=== PATIENT | female | born 1960 | race Caucasian/White ===

== ENCOUNTER → 2023-04-19 10:54 | Outpatient (CLI) | payer OTHER, SELFPAY ==
--- NOTE | 2023-04-19 | DI.RAD.S_ITS ---
PROCEDURE: XR CHEST 2V INDICATIONS: Other forms of dyspnea TECHNIQUE: 2 views of the chest were acquired. COMPARISON: None. FINDINGS: Surgical changes and devices: None. Lungs and pleura: Mild elevation of the right hemidiaphragm. The lungs are otherwise clear. No pleural effusions or pneumothorax. Mediastinum: Mediastinal contours are normal. Heart size is normal. Bones and chest wall: No suspicious bony abnormalities. Soft tissues appear unremarkable. IMPRESSION: Mild elevation of the right hemidiaphragm is of uncertain chronicity. No acute cardiopulmonary abnormality identified. Approved by: Charles Townsend M.D. on 04/19/2023 at 14:50
== END ==
PROVIDERS: Family Provider Internal Medicine; PCP Registered Nurse; Referring Provider Registered Nurse; Visit Provider Registered Nurse
DX: R06.09 Other forms of dyspnea (principal)
CPT/HCPCS: 71046

== ENCOUNTER → 2023-04-30 07:40 | Outpatient (CLI) | payer OTHER, SELFPAY ==
--- NOTE | 2023-04-30 | DI.CT.S_ITS ---
PROCEDURE: CT CHEST W CON INDICATIONS: ELEVATED HEMIDIAPHRAGM/SHORTNESS OF BREATH TECHNIQUE: After the administration of intravenous contrast, 5 mm thick sections acquired from the pulmonary apices to the posterior costophrenic angles. 1 mm axial lung, 5 mm thick coronal and sagittal reformats and 7 mm axial MIP were acquired. For radiation dose reduction, the following was used: automated exposure control, adjustment of mA and/or kV according to patient size. COMPARISON: [facility], CR, XR CHEST 2V, 04/19/2023, 11:05. [facility], RG, XR SHOULDER 2V RT, 07/12/2001, 12:40. FINDINGS: Image quality: Excellent. Lungs and pleura: Left lower lobe pulmonary nodule measuring 0.5 cm, (3/190). Minimal dependent right basilar atelectasis. No acute air space opacities. No pleural effusions or pneumothorax. Central and peripheral airways are patent and normal in caliber. Mediastinum: Heart size is normal. No pericardial effusion. No mediastinal or hilar adenopathy by size criteria. Thoracic aorta and central pulmonary arteries are normal in size. Esophagus is normal in caliber. No hiatal hernia. Asymmetric elevation of the right hemidiaphragm, unchanged. Bones and chest wall: No suspicious bony lesions. No vertebral body compression fractures. No axillary or supraclavicular adenopathy by size criteria. Thyroid gland is unremarkable. Bilateral breast implants. Abdomen: Visualized upper abdominal solid organs appear normal. Upper abdominal bowel loops are normal in caliber. IMPRESSION: 1. No acute airspace opacity. No pleural effusion. 2. Asymmetric elevation of the right hemidiaphragm. This is often an incidental finding. If high suspicion for diaphragmatic paralysis, fluoroscopic sniff study could be for performed. 3. Left lower lobe pulmonary nodule measuring 0.5 cm. Follow-up CT chest in 1 year could be considered. 4. No adenopathy. Dictated by: Ziggy Piper M.D. on 04/30/2023 at 10:05 Approved by: Ziggy Piper M.D. on 04/30/2023 at 10:12
[2023-04-30 08:11] LABS: Estimated Glomerular Filt Rate > 60 mL/min (>60)
== END ==
PROVIDERS: Radiology Diagnostic Radiology; Family Provider Internal Medicine; PCP Registered Nurse; Referring Provider Registered Nurse; Visit Provider Registered Nurse
DX: J98.6 Disorders of diaphragm (principal); R06.09 Other forms of dyspnea; R91.1 Solitary pulmonary nodule; R06.03 Acute respiratory distress; J98.8 Other specified respiratory disorders
CPT/HCPCS: 36415; 71260; 82565; 94060; 94726; 94729; Q9967

== ENCOUNTER → 2023-04-30 | Outpatient (CLI) | payer OTHER, SELFPAY | LOC: RESP 06:49 | PROVIDERS: Family Provider Internal Medicine; PCP Registered Nurse; Referring Provider Registered Nurse; Visit Provider Registered Nurse | DX: R06.09 Other forms of dyspnea (principal); R06.03 Acute respiratory distress; J98.8 Other specified respiratory disorders | CPT/HCPCS: 94060; 94726; 94729 ==

== ENCOUNTER → 2023-05-14 14:26 | Outpatient (CLI) | payer OTHER, SELFPAY ==
--- NOTE | 2023-05-14 | DI.MG.S_ITS ---
BILATERAL DIGITAL SCREENING MAMMOGRAM 3D/2D WITH CAD WITH AUGMENTATION: 05/14/2023 CLINICAL: Routine screening. Family history of breast cancer. Comparison is made to exams dated: 02/26/2022 mammogram and 07/18/2020 mammogram - Outside facility. There are scattered areas of fibroglandular density in both breasts (category b / 25%-50% glandular tissue). Current study was also evaluated with a Computer Aided Detection (CAD) system. There is a possible focal asymmetry in the left breast central to the nipple middle depth. This is more prominent. No other significant masses, calcifications, or other findings are seen in either breast. Implants present. IMPRESSION: INCOMPLETE: NEEDS ADDITIONAL IMAGING EVALUATION The possible focal asymmetry in the left breast is indeterminate. Additional views with possible ultrasound are recommended. Based on the Tyrer Cuzick model (a risk assessment model) the patient's lifetime risk is 13.7% and her 10 year risk is 6.4%. According to the ACR, ACS, and NCCN guidelines, an annual breast MRI exam along with mammogram is recommended if the patient's lifetime risk is 20% or greater. This exam was interpreted at Station ID: [id number]. NOTE: For mammograms, a report in lay terms will be sent to the patient. Approximately 15% of breast malignancies will not be visualized mammographically. In the management of a palpable breast mass, a negative mammogram must not discourage biopsy of a clinically suspicious lesion. Electronically Signed By: Ronnie Priest M.D. lc/:05/14/2023 15:24:46 letter sent: Additional Imaging Needed ACR BI-RADS Category 0: Incomplete 3340F
== END ==
PROVIDERS: Family Provider Internal Medicine; PCP Registered Nurse; Referring Provider Registered Nurse; Visit Provider Registered Nurse
DX: Z12.31 Encounter for screening mammogram for malignant neoplasm of breast (principal); Z80.3 Family history of malignant neoplasm of breast
CPT/HCPCS: 77063; 77067

== ENCOUNTER → 2023-06-04 07:57 | Outpatient (CLI) | payer OTHER, SELFPAY ==
--- NOTE | 2023-06-04 | DI.RAD.S_ITS ---
PROCEDURE: FL FLUOROSCOPY COMPARISON: [facility], CT, CT CHEST W CON, 04/30/2023, 9:04. [facility], CR, XR CHEST 2V, 04/19/2023, 11:05. [facility], MG, MM SPECIAL VIEW LT, 06/04/2023, 10:05. INDICATIONS: ELEVATED JORDAN DIAPHRAGM FINDINGS: The patient was examined under fluoroscopy with inspiration and expiration. The field of view included both right and left hemidiaphragms. The right hemidiaphragm is elevated. There is absence of right diaphragmatic excursion. The left hemidiaphragm demonstrates normal exclusion with inspiration and expiration. Visualized lungs are clear. 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 Dictated by: Winston Gomez M.D. on 06/04/2023 at 11:36 Approved by: Winston Gomez M.D. on 06/04/2023 at 11:40
--- NOTE | 2023-06-04 08:00 | DI.MG.S_ITS ---
UNILATERAL LEFT DIGITAL DIAGNOSTIC MAMMOGRAM 3D/2D WITH ADDITIONAL VIEWS: 06/04/2023 CLINICAL: Additional evaluation requested from prior study. Comparison is made to exams dated: 05/14/2023 mammogram - [facility], 02/26/2022 mammogram, and 07/18/2020 mammogram - Outside facility. There are scattered areas of fibroglandular density in the left breast (category b / 25%-50% glandular tissue). The finding seen on recent screening mammogram did not persist with additional imaging and is consistent with superimposition of normal breast tissue. No significant masses, calcifications, or other findings are seen in the breast. IMPRESSION: NEGATIVE Superimposition of normal breast tissue. No mammographic evidence of malignancy. A 1 year screening mammogram is recommended. Findings and recommendations were conveyed to the patient during today's evaluation. Based on the Tyrer Cuzick model (a risk assessment model) the patient's lifetime risk is 13.7% and her 10 year risk is 6.4%. According to the ACR, ACS, and NCCN guidelines, an annual breast MRI exam along with mammogram is recommended if the patient's lifetime risk is 20% or greater. This exam was interpreted at Station ID: [id number]. NOTE: For mammograms, a report in lay terms will be sent to the patient. Approximately 15% of breast malignancies will not be visualized mammographically. In the management of a palpable breast mass, a negative mammogram must not discourage biopsy of a clinically suspicious lesion. Electronically Signed By: Chitra Bower M.D., PH.D eb/:06/04/2023 10:19:40 letter sent: Normal Exam ACR BI-RADS Category 1: Negative [id number]
== END ==
PROVIDERS: Family Provider Internal Medicine; PCP Registered Nurse; Visit Provider Internal Medicine Sleep Medicine
DX: R92.8 Other abnormal and inconclusive findings on diagnostic imaging of breast (principal); R06.09 Other forms of dyspnea; J98.6 Disorders of diaphragm; R91.1 Solitary pulmonary nodule
CPT/HCPCS: 76000; 77065; G0279

== ENCOUNTER → 2024-05-15 12:46 | Outpatient (CLI) | payer OTHER, SELFPAY ==
--- NOTE | 2024-05-15 12:47 | DI.MG.S_ITS ---
BILATERAL DIGITAL SCREENING MAMMOGRAM 3D/2D WITH CAD WITH AUGMENTATION: 05/15/2024 CLINICAL: Routine screening. Family history breast cancer. Comparison is made to exams dated: 06/04/2023 mammogram, 05/14/2023 mammogram - [facility], and 02/26/2022 mammogram - Outside facility. There are scattered areas of fibroglandular density (category b / 25%-50% glandular tissue). Current study was also evaluated with a Computer Aided Detection (CAD) system. Bilateral breast implants are intact. No significant masses, calcifications, or other findings are seen in either breast. There has been no significant interval change. IMPRESSION: BENIGN There is no mammographic evidence of malignancy. A 1 year screening mammogram is recommended. Based on the Tyrer Cuzick model (a risk assessment model) the patient's lifetime risk is 13.1% and her 10 year risk is 6.4%. According to the ACR, ACS, and NCCN guidelines, an annual breast MRI exam along with mammogram is recommended if the patient's lifetime risk is 20% or greater. This exam was interpreted at Station ID: [id number]. NOTE: For mammograms, a report in lay terms will be sent to the patient. Approximately 15% of breast malignancies will not be visualized mammographically. In the management of a palpable breast mass, a negative mammogram must not discourage biopsy of a clinically suspicious lesion. Electronically Signed By: Chitra Bower M.D., Ph.D. edi/patrick:05/17/2024 22:50:20 letter sent: Normal Exam ACR BI-RADS Category 2: Benign
== END ==
LOC: MAMMO 12:46
PROVIDERS: Family Provider Internal Medicine; PCP Registered Nurse; Referring Provider Registered Nurse; Visit Provider Registered Nurse
DX: Z12.31 Encounter for screening mammogram for malignant neoplasm of breast (principal); Z80.3 Family history of malignant neoplasm of breast
CPT/HCPCS: 77063; 77067

== ENCOUNTER 2025-03-16 02:57 | Inpatient (IN) | payer OTHER, SELFPAY ==
[2025-03-16] VITALS (26 sets, daily range): BP systolic 100–139; BP diastolic 48–75; PULSE 62–88; RESP 15–30; TEMP 36.4–36.9; O2SAT 91–98; BMI 26.5
--- NOTE | 2025-03-16 04:04 | ED.BACK ---
HPI - Back Pain/Injury <Marvin Bain MD - Last Filed: 03/16/25 18:30> General Chief Complaint: Back Pain/Injury Stated Complaint: pain under left breast/hurts to breathe Time Seen by Provider: 03/16/25 03:19 Source: patient History of Present Illness HPI Narrative: 65-year-old female with no known history of coronary artery disease, no prior DVT/PE, complains of left pleuritic chest pain since early this morning, below her left breast, worsening tonight, worse with movements and deep breathing. No injury trauma new activities. No history of blood clots to legs or lungs, no leg pain or swelling symptoms. No fevers or chills. No recent cough shortness of breath. No prior coronary vessel interventions, or provocative stress testing of the coronary vessels. No breast/skin injury, no redness or changs to the left breast, history of remote breast augmentation bilateral. Related Data Home Medications ?Medication ?Instructions ?Recorded ?Confirmed rfeoukoy-aold-saja 8 mg-folic 400 1 tab PO DAILY 05/07/23 03/16/25 mcg-K 50 mcg-lutein 300 mcg tablet (Centrum Silver Women) Allergies Allergy/AdvReac Type Severity Reaction Status Date / Time PCN (PENICILLIN) Allergy Mild Uncoded 03/16/25 03:00 Patient History <Marvin Bain MD - Last Filed: 03/16/25 18:30> Medical History (Updated 03/16/25 @ 14:41 by Sujit Hein MD) Elevated hemidiaphragm Surgical History (Updated 03/16/25 @ 14:41 by Sujit Hein MD) H/O excision of dermoid cyst H/O: H/O breast augmentation Family History (Updated 03/16/25 @ 14:45 by Sujit Hein MD) Mother Dementia Father Myocardial infarct Sister Breast cancer Social History household members: spouse Smoking Status: Never smoker Smoking Status: Never smoker Alcohol type: beer and wine Exam <Marvin Bain MD - Last Filed: 03/16/25 18:30> Narrative Exam Narrative: GENERAL: Well-developed patient, in mild distress. HEAD: Atraumatic. Normocephalic. EYES: Pupils equal round and reactive. Extraocular motions intact. No scleral icterus. No injection or drainage. ENT: Nose without bleeding, purulent drainage. Throat without erythema, tonsillar hypertrophy or exudate. Airway patent. NECK: Trachea midline. Non tender CARDIOVASCULAR: Regular rate and rhythm without murmurs, gallops, or rubs. RESPIRATORY: Clear to auscultation. Breath sounds equal bilaterally. No wheezes, rales, or rhonchi. Left breast exam with CLARITA gary, well-healed inferior scar midline horizontal from augmentation remote procedure, no redness, no tenderness to breast tissue, no tenderness to chest wall or lymphadenopathy or fascicular rash or erythema. No tenderness left axilla, no axillary lymphadenopathy or cystic lesions or other lesions palpable. GASTROINTESTINAL: Abdomen soft, non-tender, nondistended. EXTREMITIES: No edema or joint tenderness. BACK: Nontender without deformity or crepitance. No flank tenderness. NEURO: AOx3. Motor functions grossly nonfocal. SKIN: No rash or erythema of visible areas Initial Vital Signs Initial Vital Signs: Vital Signs Temperature 98.5 F 03/16/25 03:00 Pulse Rate 82 03/16/25 03:00 Respiratory Rate 15 03/16/25 03:00 Blood Pressure 122/58 L 03/16/25 03:00 Pulse Oximetry 96 03/16/25 03:00 Oxygen Delivery Method Room Air 03/16/25 03:00 <Calvin Espinoza MD - Last Filed: 03/16/25 09:40> Initial Vital Signs Initial Vital Signs: Vital Signs Temperature 98.5 F 03/16/25 03:00 Pulse Rate 82 03/16/25 03:00 Respiratory Rate 15 03/16/25 03:00 Blood Pressure 122/58 L 03/16/25 03:00 Pulse Oximetry 96 03/16/25 03:00 Oxygen Delivery Method Room Air 03/16/25 03:00 Course <Marvin Bain MD - Last Filed: 03/16/25 18:30> Orders Ordered: ED Orders 03/16/25 13:19 PTT Partial Thromboplastin Tomy Q6H 03/16/25 21:00 PTT Partial Thromboplastin Tomy Q6H 03/17/25 00:30 PTT Partial Thromboplastin Tomy Q6H 03/17/25 05:00 Hemoglobin and Hematocrit DAILY Platelet Count DAILY 03/18/25 05:00 Hemoglobin and Hematocrit DAILY Platelet Count DAILY Hydrocodone Bitart/Acetaminophen (Hydrocodone/Acet 5/325 Tablet) 1 tab PO Q4HR PRN PRN Reason: Pain, Moderate (4-6) Last Admin: 03/16/25 16:12 Dose: 1 tab Documented By: Admin: 03/16/25 10:50 Dose: 1 tab Documented By: ANDERSON Hydrocodone Bitart/Acetaminophen (Hydrocodone/Acet 5/325 Tablet) 2 tab PO Q4HR PRN PRN Reason: Pain, Severe (7-10) Last Admin: 03/16/25 12:50 Dose: 2 tab Documented By: Hydromorphone HCl (Hydromorphone Hcl 0.5 Mg/0.5 Ml Syringe) 0.5 mg IV Q2H PRN PRN Reason: Pain, Severe (7-10) Last Admin: 03/16/25 18:21 Dose: 0.5 mg Documented By: Admin: 03/16/25 16:35 Dose: 0.5 mg Documented By: Admin: 03/16/25 14:48 Dose: 0.5 mg Documented By: Heparin Sodium/Dextrose (Heparin Drip) 25,000 unit in 500 mls @ 24.494 mls/hr IV CONT FRANCOISE; Protocol Last Titration: 03/16/25 14:59 Dose: 14 units/kg/hr, 19.051 mls/hr Documented By: Co-signed By: VALARIE Titration: 03/16/25 13:58 Dose: 0 units/kg/hr, 0 mls/hr Documented By: Co-signed By: BALDOMERO Titration: 03/16/25 12:09 Dose: 18 units/kg/hr, 24.5 mls/hr Documented By: ANDERSON Co-signed By: KB Admin: 03/16/25 07:01 Dose: 18 units/kg/hr, 24.5 mls/hr Documented By: KH Co-signed By: AB Naloxone HCl (Naloxone 0.4 Mg/Ml Vial) 0.2 mg IV Q2MIN PRN PRN Reason: Opiate Reversal Ondansetron HCl (Ondansetron 4 Mg/2 Ml Inj) 4 mg IV Q6HR PRN PRN Reason: Nausea And Vomiting Ondansetron HCl (Ondansetron 4 Mg Odt) 4 mg SL Q6HR PRN PRN Reason: Nausea Sodium Chloride (Sodium Chloride 0.9% Flush) 10 ml IV PRN PRN PRN Reason: Flush Last Admin: 03/16/25 18:22 Dose: 10 ml Documented By: Admin: 03/16/25 14:49 Dose: 10 ml Documented By: Sodium Chloride (Sodium Chloride 0.9% Flush) 10 ml IV BID FRANCOISE Discontinued Medications Aspirin (Aspirin 81 Mg Chew Tab) 324 mg PO NOW ONE Stop: 03/16/25 04:14 Last Admin: 03/16/25 04:23 Dose: 324 mg Documented By: KEVIN Heparin Sodium (Porcine) (Heparin 5,000 Unit/Ml Vial) 5,500 unit 80 unit/kg (5500 unit) IV NOW ONE Stop: 03/16/25 06:27 Last Admin: 03/16/25 06:45 Dose: 5,500 unit Documented By: KEVIN Hydromorphone HCl (Hydromorphone 1 Mg/Ml Syringe) 0.5 mg IV NOW ONE Stop: 03/16/25 13:03 Last Admin: 03/16/25 14:19 Dose: Not Given Documented By: Ceftriaxone Sodium 1,000 mg/ (Sodium Chloride) 100 mls @ 200 mls/hr IV NOW ONE Stop: 03/16/25 06:41 Last Infusion: 03/16/25 08:13 Dose: Infused Documented By: Admin: 03/16/25 07:00 Dose: 200 mls/hr Documented By: KEVIN Azithromycin 500 mg/ Dextrose 250 mls @ 250 mls/hr IV NOW ONE Stop: 03/16/25 06:41 Last Infusion: 03/16/25 09:59 Dose: Infused Documented By: Admin: 03/16/25 08:46 Dose: 250 mls/hr Documented By: ANDERSON Vital Signs Vital signs: Vital Signs - 8 hr 03/16/25 03:00 03/16/25 04:11 03/16/25 04:12 Temperature 98.5 F Pulse Rate 82 69 Respiratory Rate 15 Blood Pressure 122/58 L 131/75 Pulse Oximetry 96 97 Oxygen Delivery Method Room Air 03/16/25 04:12 03/16/25 04:30 03/16/25 04:30 Temperature Pulse Rate 69 67 Respiratory Rate 24 22 Blood Pressure 134/60 Pulse Oximetry 97 96 Oxygen Delivery Method 03/16/25 05:00 03/16/25 05:00 03/16/25 06:47 Temperature Pulse Rate 68 67 Respiratory Rate 28 H 23 Blood Pressure 123/71 Pulse Oximetry 96 97 Oxygen Delivery Method 03/16/25 06:48 03/16/25 06:48 03/16/25 07:00 Temperature Pulse Rate 66 69 Respiratory Rate 21 30 H Blood Pressure 139/65 Pulse Oximetry 96 97 Oxygen Delivery Method 03/16/25 07:01 03/16/25 07:01 03/16/25 07:49 Temperature Pulse Rate 70 86 Respiratory Rate 28 H Blood Pressure 122/57 L Pulse Oximetry 96 97 Oxygen Delivery Method 03/16/25 08:00 03/16/25 08:30 03/16/25 09:01 Temperature Pulse Rate 62 65 71 Respiratory Rate 21 19 Blood Pressure Pulse Oximetry 98 95 92 Oxygen Delivery Method <Calvin Espinoza MD - Last Filed: 03/16/25 09:40> Orders Ordered: ED Orders 03/16/25 13:19 PTT Partial Thromboplastin Tomy Q6H 03/16/25 21:00 PTT Partial Thromboplastin Tomy Q6H 03/17/25 00:30 PTT Partial Thromboplastin Tomy Q6H 03/17/25 05:00 Hemoglobin and Hematocrit DAILY Platelet Count DAILY 03/18/25 05:00 Hemoglobin and Hematocrit DAILY Platelet Count DAILY Hydrocodone Bitart/Acetaminophen (Hydrocodone/Acet 5/325 Tablet) 1 tab PO Q4HR PRN PRN Reason: Pain, Moderate (4-6) Last Admin: 03/16/25 16:12 Dose: 1 tab Documented By: Admin: 03/16/25 10:50 Dose: 1 tab Documented By: ANDERSON Hydrocodone Bitart/Acetaminophen (Hydrocodone/Acet 5/325 Tablet) 2 tab PO Q4HR PRN PRN Reason: Pain, Severe (7-10) Last Admin: 03/16/25 12:50 Dose: 2 tab Documented By: Hydromorphone HCl (Hydromorphone Hcl 0.5 Mg/0.5 Ml Syringe) 0.5 mg IV Q2H PRN PRN Reason: Pain, Severe (7-10) Last Admin: 03/16/25 18:21 Dose: 0.5 mg Documented By: Admin: 03/16/25 16:35 Dose: 0.5 mg Documented By: Admin: 03/16/25 14:48 Dose: 0.5 mg Documented By: Heparin Sodium/Dextrose (Heparin Drip) 25,000 unit in 500 mls @ 24.494 mls/hr IV CONT FRANCOISE; Protocol Last Titration: 03/16/25 14:59 Dose: 14 units/kg/hr, 19.051 mls/hr Documented By: Co-signed By: VALARIE Titration: 03/16/25 13:58 Dose: 0 units/kg/hr, 0 mls/hr Documented By: Co-signed By: BALDOMERO Titration: 03/16/25 12:09 Dose: 18 units/kg/hr, 24.5 mls/hr Documented By: ANDERSON Co-signed By: RAE Admin: 03/16/25 07:01 Dose: 18 units/kg/hr, 24.5 mls/hr Documented By: KEVIN Co-signed By: Naloxone HCl (Naloxone 0.4 Mg/Ml Vial) 0.2 mg IV Q2MIN PRN PRN Reason: Opiate Reversal Ondansetron HCl (Ondansetron 4 Mg/2 Ml Inj) 4 mg IV Q6HR PRN PRN Reason: Nausea And Vomiting Ondansetron HCl (Ondansetron 4 Mg Odt) 4 mg SL Q6HR PRN PRN Reason: Nausea Sodium Chloride (Sodium Chloride 0.9% Flush) 10 ml IV PRN PRN PRN Reason: Flush Last Admin: 03/16/25 18:22 Dose: 10 ml Documented By: Admin: 03/16/25 14:49 Dose: 10 ml Documented By: Sodium Chloride (Sodium Chloride 0.9% Flush) 10 ml IV BID [facility] Discontinued Medications Aspirin (Aspirin 81 Mg Chew Tab) 324 mg PO NOW ONE Stop: 03/16/25 04:14 Last Admin: 03/16/25 04:23 Dose: 324 mg Documented By: KEVIN Heparin Sodium (Porcine) (Heparin 5,000 Unit/Ml Vial) 5,500 unit 80 unit/kg (5500 unit) IV NOW ONE Stop: 03/16/25 06:27 Last Admin: 03/16/25 06:45 Dose: 5,500 unit Documented By: KEVIN Hydromorphone HCl (Hydromorphone 1 Mg/Ml Syringe) 0.5 mg IV NOW ONE Stop: 03/16/25 13:03 Last Admin: 03/16/25 14:19 Dose: Not Given Documented By: Ceftriaxone Sodium 1,000 mg/ (Sodium Chloride) 100 mls @ 200 mls/hr IV NOW ONE Stop: 03/16/25 06:41 Last Infusion: 03/16/25 08:13 Dose: Infused Documented By: Admin: 03/16/25 07:00 Dose: 200 mls/hr Documented By: KEVIN Azithromycin 500 mg/ Dextrose 250 mls @ 250 mls/hr IV NOW ONE Stop: 03/16/25 06:41 Last Infusion: 03/16/25 09:59 Dose: Infused Documented By: Admin: 03/16/25 08:46 Dose: 250 mls/hr Documented By: CTS Reevaluation(s) Reevaluation #1: Care assumed at 0700. Vs stable, on heparin. out of dept for echo at 0740. Anticipate admit to hospitalist. Reevaluation #2: At 8:45 a.m., patient is examined. Having some pain with breathing, not short of breath, no history of cancer no history of long immobilization no history of brain aneurysm or GI bleeding. Understands diagnosis of pulmonary embolism and concern for endometrial abnormality, agrees with plan for admission. Vital signs were reviewed and normal, heart and lungs are clear. States she does not have an established primary care provider and is agreeable to admission. Echocardiogram has been done, report is pending, per tech there was no evidence of RV strain. Consultations Consultation #1: Case discussed with hospitalist, Dr. Hein, admission accepted at 9:40 a.m. Vital Signs Vital signs: Vital Signs - 8 hr 03/16/25 03:00 03/16/25 04:11 03/16/25 04:12 Temperature 98.5 F Pulse Rate 82 69 Respiratory Rate 15 Blood Pressure 122/58 L 131/75 Pulse Oximetry 96 97 Oxygen Delivery Method Room Air 03/16/25 04:12 03/16/25 04:30 03/16/25 04:30 Temperature Pulse Rate 69 67 Respiratory Rate 24 22 Blood Pressure 134/60 Pulse Oximetry 97 96 Oxygen Delivery Method 03/16/25 05:00 03/16/25 05:00 03/16/25 06:47 Temperature Pulse Rate 68 67 Respiratory Rate 28 H 23 Blood Pressure 123/71 Pulse Oximetry 96 97 Oxygen Delivery Method 03/16/25 06:48 03/16/25 06:48 03/16/25 07:00 Temperature Pulse Rate 66 69 Respiratory Rate 21 30 H Blood Pressure 139/65 Pulse Oximetry 96 97 Oxygen Delivery Method 03/16/25 07:01 03/16/25 07:01 03/16/25 07:49 Temperature Pulse Rate 70 86 Respiratory Rate 28 H Blood Pressure 122/57 L Pulse Oximetry 96 97 Oxygen Delivery Method 03/16/25 08:00 03/16/25 08:30 03/16/25 09:01 Temperature Pulse Rate 62 65 71 Respiratory Rate 21 19 Blood Pressure Pulse Oximetry 98 95 92 Oxygen Delivery Method MDM - Back Pain/Injury <Marvin Bain MD - Last Filed: 03/16/25 18:30> Lab Data Attestation: I reviewed the patient's lab results. Lab results narrative: White blood cell count 8000, hemoglobin 13.6, platelets adequate. Glucose 127. Renal function, serum CO2, electrolytes normal. Liver functions normal. Lipase 767 elevated. Troponin negative/unmeasurable. 03/16/25 04:15 03/16/25 04:15 Labs: Lab Results 03/16/25 Range/Units 04:15 WBC 8.0 (4.5-11.0) X10^3/uL RBC 4.44 (4.0-5.2) X10^6/uL Hgb 13.6 (12.0-16.0) g/dL Hct 40.7 (36-46) % MCV 91.6 (80-100) fL MCH 30.6 (26-34) PG MCHC 33.4 (30-36) % RDW 13.1 (11.6-14.8) % Plt Count 192 (150-400) X10^3/uL Neut % (Auto) 77.7 H (50-75) % Lymph % (Auto) 13.0 L (25-40) % Mcleod % (Auto) 7.7 (3-14) % Eos % (Auto) 1.0 L (2-4) % Baso % (Auto) 0.6 (0-2) % Neut # (Auto) 6200 (4297-2131) /uL Lymph # (Auto) 1000 L (0891-4740) /uL Mcleod # (Auto) 600 (0-900) /uL Eos # (Auto) 100 (0-450) /uL Baso # (Auto) 0 (0-100) /uL APTT 26 (25.1-36.5) SECONDS Sodium 137 (137-145) mmol/L Potassium 4.1 (3.4-5.1) mmol/L Chloride 104 (98-107) mmol/L Carbon Dioxide 29 (22-32) mmol/L BUN 16 (7-17) mg/dL Creatinine 0.66 (0.52-1.04) mg/dL Estimated GFR > 60 (>60) mL/min BUN/Creatinine Ratio 24.2 H (6-22) Glucose 127 H (70-99) mg/dL Calcium 9.0 (8.4-10.2) mg/dL Total Bilirubin 0.6 (0.2-1.3) mg/dL AST 22 (14-36) IU/L ALT 18 (<35) IU/L Alkaline Phosphatase 73 (38-126) U/L Total Creatine Kinase 36 (30-135) U/L Troponin I < 0.012 (0.01-0.034) ng/mL Total Protein 6.4 (6.3-8.2) g/dL Albumin 3.8 (3.5-5.0) g/dL Globulin 2.6 (1.7-4.1) g/dL Albumin/Globulin Ratio 1.5 (1.0-2.8) Lipase 767 H (23-300) U/L ECG Data Attestation: I personally reviewed and interpreted this ECG as follows: Interpretation: 0420, normal sinus rhythm with sinus arrhythmia. No obvious ST segment elevation or depression changes. DC 142, QRS 92, QTC 456. MDM Narrative Medical decision making narrative: 65-year-old female complains of left anterior sharp chest pain sensation below her left breast. Prior breast augmentation, on clinical exam does not seem to have erythema or breast tenderness. Consider pleuritic chest pain of non-mammary origin. DDx consider pneumonia, pneumothorax, pulmonary embolus, pleural effusion, musculoskeletal, ACS, other. Chest x-ray, EKG, labs pending. EKG without obvious ischemic changes, sinus rhythm. Chest x-ray showed no acute changes, see radiology report. Initial lab data: White blood cell count 8000, hemoglobin 13.6, platelets adequate. Glucose 127. Renal function, serum CO2, electrolytes normal. Liver functions normal. Lipase 767 elevated. Troponin negative/unmeasurable. CT angiogram chest. Impressions: ?Studies positive for bilateral pulmonary emboli as discussed above. Borderline findings of right heart strain. Consider echocardiogram for further evaluation. Dense consolidation within the right lower lobe. Given the extensive filling defects within the right lower lobe, pulmonary infarcts should be considered. Consolidation in the left lower lobe is more likely due to atelectasis than infiltrate or pulmonary infarct. Trace bilateral pleural effusions. Elevated right hemidiaphragm.? See tele radiology report. IV heparin bolus/infusion per VTE pulmonary embolism protocol. Blood cultures, IV ceftriaxone, IV azithromycin, for community-acquired pneumonia coverage. We will obtain echocardiogram to look for RV strain, borderline findings by CT, might require transfer if RV strain physiology confirmed. Might need transfer to higher level of care with thrombectomy capabilities. Keep NPO. CT abdomen pelvis IV contrast. ?Please refer to patient's separately dictated CT angiogram of the chest for information regarding the findings of bilateral pulmonary emboli. No findings of bowel obstruction. Abnormal distention and thickening of the endometrial stripe with enhancing mass versus hyperdense mass within the endometrial canal. This may be related to an endometrial polyp or endometrial neoplasm. This is distinctly abnormal for a postmenopausal female. Further evaluation is indicated beginning with pelvic ultrasound. Correlation with any abnormal uterine bleeding is suggested. ? See tele radiology report. Pelvic ultrasound requested additionally. 0700, Echocardiogram and pelvic ultrasound studies have been ordered. Might need transfer if RV strain confirmed on echo. IV heparin for PE by CTA initiated, IV antibiotics for possible infiltrates initiated. Signed out to oncoming ED shift physician Dr. Espinoza. <Calvin Espinoza MD - Last Filed: 03/16/25 09:40> Lab Data Labs: Lab Results 03/16/25 Range/Units 04:15 WBC 8.0 (4.5-11.0) X10^3/uL RBC 4.44 (4.0-5.2) X10^6/uL Hgb 13.6 (12.0-16.0) g/dL Hct 40.7 (36-46) % MCV 91.6 (80-100) fL MCH 30.6 (26-34) PG MCHC 33.4 (30-36) % RDW 13.1 (11.6-14.8) % Plt Count 192 (150-400) X10^3/uL Neut % (Auto) 77.7 H (50-75) % Lymph % (Auto) 13.0 L (25-40) % Mcleod % (Auto) 7.7 (3-14) % Eos % (Auto) 1.0 L (2-4) % Baso % (Auto) 0.6 (0-2) % Neut # (Auto) 6200 (7893-6011) /uL Lymph # (Auto) 1000 L (0708-9261) /uL Mcleod # (Auto) 600 (0-900) /uL Eos # (Auto) 100 (0-450) /uL Baso # (Auto) 0 (0-100) /uL APTT 26 (25.1-36.5) SECONDS Sodium 137 (137-145) mmol/L Potassium 4.1 (3.4-5.1) mmol/L Chloride 104 (98-107) mmol/L Carbon Dioxide 29 (22-32) mmol/L BUN 16 (7-17) mg/dL Creatinine 0.66 (0.52-1.04) mg/dL Estimated GFR > 60 (>60) mL/min BUN/Creatinine Ratio 24.2 H (6-22) Glucose 127 H (70-99) mg/dL Calcium 9.0 (8.4-10.2) mg/dL Total Bilirubin 0.6 (0.2-1.3) mg/dL AST 22 (14-36) IU/L ALT 18 (<35) IU/L Alkaline Phosphatase 73 (38-126) U/L Total Creatine Kinase 36 (30-135) U/L Troponin I < 0.012 (0.01-0.034) ng/mL Total Protein 6.4 (6.3-8.2) g/dL Albumin 3.8 (3.5-5.0) g/dL Globulin 2.6 (1.7-4.1) g/dL Albumin/Globulin Ratio 1.5 (1.0-2.8) Lipase 767 H (23-300) U/L Imaging Data CT scan - chest: My Impression: Independently reviewed CT angio chest, bilateral pulmonary emboli. Radiologist's Impression: [address] [address] [address] Scan Report Signed Patient: Corrina Gilbert MR#: [id number] : 1960 Acct:[id number] Age/Sex: 65 / F Date of Service: 03/16/25 Loc: ED Accession Number: [id number] Procedure: CT angio chest PE protocol Ordering Provider: Marvin Bain MD PROCEDURE: CT ANGIO CHEST PE PROTOCOL INDICATIONS: left anterior pleuritic CP TECHNIQUE: After the administration of intravenous contrast, 2 mm thick sections acquired from the pulmonary apices to the posterior costophrenic angles. 3-dimensional maximum intensity projection (MIP) coronal and sagittal reformats were then acquired through the thorax. For radiation dose reduction, the following was used: automated exposure control, adjustment of mA and/or kV according to patient size. COMPARISON: None. FINDINGS: Image quality: Diagnostic Lungs and pleura: Right hemidiaphragm elevation. Bibasilar opacities likely a mix of atelectasis and airspace disease, most confluent the right lower lobe and lingula. Trace effusions. Mediastinum, heart, and esophagus: Pulmonary emboli are seen, extending from the right main pulmonary artery into the segmental and subsegmental branches. Segmental and subsegmental left pulmonary emboli are also seen. There are CT signs of right heart strain, with RV to LV ratio slightly over 1. Unremarkable esophagus. No lymphadenopathy by size criteria. Unremarkable esophagus. Chest wall and thyroid: Unremarkable thyroid. No axillary lymph nodes enlarged by size criteria. Breast implants are seen. Upper abdomen: No significant abnormality on this arterial phase study Bones: There are degenerative osseous changes. IMPRESSION: Bilateral pulmonary emboli, with positive CT signs of right heart strain. Bibasilar opacities, particularly in the lingula and right lower lobe, likely airspace disease and/or infarcts. Superimposed atelectasis is present. Trace pleural effusions. Other findings above. No significant changes from the preliminary report. Dictated by: Ronnie Priest M.D. on 03/16/2025 at 8:05 Approved by: Ronnie rPiest M.D. on 03/16/2025 at 8:16 CT scan - abdomen/pelvis: Radiologist's Impression: [address] [address] [address] Scan Report Signed Patient: Corrina Gilbert MR#: [id number] : 1960 Acct:[id number] Age/Sex: 65 / F Date of Service: 03/16/25 Loc: ED Accession Number: [id number] Procedure: CT abdomen pelvis w con Ordering Provider: Marvin Bain MD PROCEDURE: CT ABDOMEN PELVIS W CON INDICATIONS: chest/abd pain, lipase elevated TECHNIQUE: After the administration of intravenous contrast, axial sections acquired from the lung bases to the pubic symphysis. Coronal and sagittal reformats were performed. For radiation dose reduction, the following was used: automated exposure control, adjustment of mA and/or kV according to patient size. COMPARISON: None. FINDINGS: Image quality: Diagnostic Lower chest: Chest findings separately dictated Liver: Unremarkable Gallbladder and biliary system: Unremarkable, nondilated Pancreas: No ductal dilation No significant peripancreatic edema Spleen: Nonenlarged Adrenals: No discrete nodules Kidneys: Parapelvic cysts are present. No hydronephrosis. Vessels and lymph nodes: The main portal vein is patent. Mild aortoiliac atherosclerotic calcifications. No enlarged lymph nodes by size criteria. Bowel and peritoneum: No bowel obstruction. No pathologic ascites. No abscess. Nondilated appendix Body wall: Unremarkable Pelvis: Endometrial thickening with endometrial lesion measuring about 1.8 cm. Unremarkable adnexal structures by CT. Bones: No aggressive appearing osseous abnormality. There are degenerative changes. IMPRESSION: No acute abdominal pelvic finding. Chest CT PE findings are separately dictated. Enhancing endometrial lesion with thickening, abnormal for this age demographic. Pelvic ultrasound suggested. No significant discrepancy from the preliminary report. Other findings above. Dictated by: Ronnie Priest M.D. on 03/16/2025 at 8:16 Approved by: Ronnie Priest M.D. on 03/16/2025 at 8:19 Discharge Plan Departure Patient Disposition: Admitted As Inpatient Clinical Impression: Pulmonary emboli, Endometrial mass Admit Date/Time: 03/16/25 09:38 Admit Provider: Sujit Hein
--- NOTE | 2025-03-16 04:13 | DI.RAD.S_ITS ---
PROCEDURE: XR CHEST 1V INDICATIONS: chest pain TECHNIQUE: One view of the chest was acquired. COMPARISON: [facility], , XR CHEST 2V, 04/19/2023, 11:05. FINDINGS AND IMPRESSION: Low lung volumes with right hemidiaphragm eventration, limiting evaluation. Possible basal opacities and/or small effusions. Normal heart size. Degenerative osseous changes. No significant discrepancy from the preliminary report Dictated by: Ronnie Priest M.D. on 03/16/2025 at 8:03 Approved by: Ronnie Priest M.D. on 03/16/2025 at 8:05
--- NOTE | 2025-03-16 04:13 | EKG_ITS ---
[id number] [address] Test Date: 2025-03-16 Pat Name: Corrina Gilbert Department: [facility] Room: Gender: Female Tmd Teacher: PAO HARGROVE : 1960 Requested By: Order Number: [id number] Reading MD: Gama Santos MD Measurements Intervals [place] Rate: 63 P: 52 AL: 142 QRS: 27 QRSD: 92 T: 59 QT: 446 QTc: 456 Interpretive Statements Normal sinus rhythm with sinus arrhythmia Nonspecific T wave abnormality Electronically Signed On 03-19-2025 7:44:51 PDT by Gama Santos MD
[2025-03-16] MEDS: ASPIRIN 81 MG CHEW TAB 324 MG PO (04:23)
[2025-03-16 04:28] LABS: Add Manual Diff / Slide Review NO; Hematocrit 40.7 % (36-46); Hemoglobin 13.6 g/dL (12.0-16.0); Lymphocytes Absolute Auto 1000 /uL (1100-4500); Mean Corpuscular HGB Conc 33.4 % (30-36); Mean Corpuscular Hemoglobin 30.6 PG (26-34); Mean Corpuscular Volume 91.6 fL (80-100); Platelet Count 192 X10^3/uL (150-400)
[2025-03-16 04:38] LABS: Alanine Aminotransferase 18 IU/L (<35); Albumin 3.8 g/dL (3.5-5.0); Albumin Globulin Ratio 1.5 (1.0-2.8); Alkaline Phosphatase 73 U/L (38-126); Blood Urea Nitrogen 16 mg/dL (7-17); Calcium 9.0 mg/dL (8.4-10.2); Carbon Dioxide 29 mmol/L (22-32); Chloride 104 mmol/L (98-107); Creatine Kinase 36 U/L (30-135); Estimated Glomerular Filt Rate > 60 mL/min (>60); Globulin 2.6 g/dL (1.7-4.1); Glucose 127 mg/dL (70-99); HEMOLYSIS 21 (0-50); Lipase 767 U/L (23-300); Potassium 4.1 mmol/L (3.4-5.1); Sodium 137 mmol/L (137-145); Total Protein 6.4 g/dL (6.3-8.2)
[2025-03-16 04:49] LABS: Troponin I < 0.012 ng/mL (0.01-0.034)
--- NOTE | 2025-03-16 05:08 | DI.CT.S_ITS ---
PROCEDURE: CT ANGIO CHEST PE PROTOCOL INDICATIONS: left anterior pleuritic CP TECHNIQUE: After the administration of intravenous contrast, 2 mm thick sections acquired from the pulmonary apices to the posterior costophrenic angles. 3-dimensional maximum intensity projection (MIP) coronal and sagittal reformats were then acquired through the thorax. For radiation dose reduction, the following was used: automated exposure control, adjustment of mA and/or kV according to patient size. COMPARISON: None. FINDINGS: Image quality: Diagnostic Lungs and pleura: Right hemidiaphragm elevation. Bibasilar opacities likely a mix of atelectasis and airspace disease, most confluent the right lower lobe and lingula. Trace effusions. Mediastinum, heart, and esophagus: Pulmonary emboli are seen, extending from the right main pulmonary artery into the segmental and subsegmental branches. Segmental and subsegmental left pulmonary emboli are also seen. There are CT signs of right heart strain, with RV to LV ratio slightly over 1. Unremarkable esophagus. No lymphadenopathy by size criteria. Unremarkable esophagus. Chest wall and thyroid: Unremarkable thyroid. No axillary lymph nodes enlarged by size criteria. Breast implants are seen. Upper abdomen: No significant abnormality on this arterial phase study Bones: There are degenerative osseous changes. IMPRESSION: Bilateral pulmonary emboli, with positive CT signs of right heart strain. Bibasilar opacities, particularly in the lingula and right lower lobe, likely airspace disease and/or infarcts. Superimposed atelectasis is present. Trace pleural effusions. Other findings above. No significant changes from the preliminary report. Dictated by: Ronnie Priest M.D. on 03/16/2025 at 8:05 Approved by: Ronnie Priest M.D. on 03/16/2025 at 8:16
--- NOTE | 2025-03-16 05:09 | DI.CT.S_ITS ---
PROCEDURE: CT ABDOMEN PELVIS W CON INDICATIONS: chest/abd pain, lipase elevated TECHNIQUE: After the administration of intravenous contrast, axial sections acquired from the lung bases to the pubic symphysis. Coronal and sagittal reformats were performed. For radiation dose reduction, the following was used: automated exposure control, adjustment of mA and/or kV according to patient size. COMPARISON: None. FINDINGS: Image quality: Diagnostic Lower chest: Chest findings separately dictated Liver: Unremarkable Gallbladder and biliary system: Unremarkable, nondilated Pancreas: No ductal dilation No significant peripancreatic edema Spleen: Nonenlarged Adrenals: No discrete nodules Kidneys: Parapelvic cysts are present. No hydronephrosis. Vessels and lymph nodes: The main portal vein is patent. Mild aortoiliac atherosclerotic calcifications. No enlarged lymph nodes by size criteria. Bowel and peritoneum: No bowel obstruction. No pathologic ascites. No abscess. Nondilated appendix Body wall: Unremarkable Pelvis: Endometrial thickening with endometrial lesion measuring about 1.8 cm. Unremarkable adnexal structures by CT. Bones: No aggressive appearing osseous abnormality. There are degenerative changes. IMPRESSION: No acute abdominal pelvic finding. Chest CT PE findings are separately dictated. Enhancing endometrial lesion with thickening, abnormal for this age demographic. Pelvic ultrasound suggested. No significant discrepancy from the preliminary report. Other findings above. Dictated by: Ronnie Priest M.D. on 03/16/2025 at 8:16 Approved by: Ronnie Priest M.D. on 03/16/2025 at 8:19
--- NOTE | 2025-03-16 06:39 | DI.ECHO.S_ITS ---
[facility] : : [address] : [place] : : [id number] : : Phone: [phone] Echocardiogram Report + + :Name: JORDON WHITE Study Date: 03/16/2025 Height: 63 in : [id number] ReadingLocation: Weight: 150 lb : : Gender: Female BSA: 1.7 m2 : :: 1960 Age: 65 yrs BP: 131/75 mmHg: :Reason For Study: PE : :Ordering Physician: KENISHA, : :ROMAN Performed By: Benito Rolle : :Referring: ROMAN DE : + + Interpretation Summary The ejection fraction is estimated to be 55-60%. Normal diastolic function. The right ventricle is normal in size and function. Pulmonary artery pressures cannot be estimated because of the lack of a measurable TR jet velocity but the IVC suggests a CVP of around 8 mmHg. No significant valvular abnormalities. Procedure: A two-dimensional transthoracic echocardiogram with color flow and Doppler was performed. The study quality was technically adequate. There is no prior echocardiogram noted for this patient. The patient was in normal sinus rhythm during the exam. Left Ventricle: The left ventricle is normal in size and wall thickness. Left ventricular systolic function is normal. The ejection fraction is estimated to be 55-60%. There are no obvious focal wall motion abnormalities noted but poor endocardial definition reduces the sensitivity for the detection of such. Normal diastolic function. Right Ventricle: The right ventricle is normal in size and function. Atria: The left atrial size is normal. Right atrial size is normal. There is no Doppler evidence for an interatrial shunt. Mitral Valve: The mitral valve leaflets appear to open well. There is no mitral valve stenosis. There is trace mitral regurgitation. Aortic Valve: The aortic valve is trileaflet. The aortic valve opens well. There is no aortic valve stenosis. No aortic regurgitation is present. Tricuspid Valve: The tricuspid valve leaflets are thin and pliable. There is trace tricuspid regurgitation. Pulmonary artery pressures cannot be estimated because of the lack of a measurable TR jet velocity but the IVC suggests a CVP of around 8 mmHg. Pulmonic Valve: The pulmonic valve is not well seen, but is grossly normal. There is trace pulmonic regurgitation. Great Vessels: The aortic root is normal size. The ascending aorta is normal in size. The aortic arch could not be visualized. The IVC is of normal diameter and collapses less than 50% with a sniff. This suggests a right atrial pressure of 8 mm Hg. Pericardium/ Pleura There is no pericardial effusion. MMode/2D Measurements & Calculations LVIDd: 4.4 cm LVOT diam: 2.0 cm LVIDs: 2.8 cm Ao root diam: 2.6 cm FS: 37.2 % asc Aorta Diam: 3.1 cm IVSd: 0.91 cm LVPWd: 0.97 cm LV ramirez. diameter/BSA (cm/m^2): 2.6 LV sys. diameter/BSA (cm/m^2): 1.6 LA A2 area: 15.6 cm2 RA long axis: 4.5 cm LA A4 area: 13.7 cm2 RA area: 9.6 cm2 LA length (vol): 4.5 cm RA vol: 17.5 ml LA vol: 40.6 ml RA : 10.2 ml/m2 LA vol index: 23.7 ml/m2 IVC diam: 1.8 cm RVD1 (basal): 2.3 cm RVD2 (mid): 2.0 cm TAPSE: 1.7 cm Doppler Measurements & Calculations Ao V2 max: 113.2 cm/sec LVOT Max Jeremie: 97.6 cm/sec Ao V2 mean: 78.6 cm/sec LV V1 max P.8 mmHg Ao max P.1 mmHg LV V1 VTI: 19.0 cm Ao mean P.8 mmHg ESTEPHANIA(I,D): 2.9 cm2 Ao V2 VTI: 20.0 cm ESTEPHANIA(V,D): 2.6 cm2 sev ratio: 0.95 ESTEPHANIA indexed to BSA (cm^2/m^2): 1.7 MV E max jeremie: 46.4 cm/sec PA V2 max: 83.0 cm/sec MV A max jeremie: 59.7 cm/sec PA V2 mean: 65.0 cm/sec MV E/A: 0.78 PA mean P.8 mmHg Med Peak E' Jeremie: 7.1 cm/sec PA pr(Accel): -4.9 mmHg E/E' med: 6.5 Lat Peak E' Jeremie: 13.0 cm/sec E/E' lat: 3.6 E/e' average: 5.0 MV dec time: 0.23 sec SONALI): 57.8 ml Reading Physician:10:11 AM
--- NOTE | 2025-03-16 06:42 | DI.US.S_ITS ---
PROCEDURE: US PELVIC COMPLETE INDICATIONS: endometrial mass on CT, postmenopausal TECHNIQUE: Real-time scanning was performed of the pelvic organs, with image documentation. Additional endovaginal scanning was necessary due to incomplete visualization of the adnexal and endometrial structures by transabdominal scanning. COMPARISON: [facility], CT, CT ABDOMEN PELVIS W CON, 03/16/2025, 5:24. FINDINGS: Uterus: Uterus is anteverted and normal in size at 5.3 x 3.4 cm. The myometrium is homogeneous. The endometrium measures 14 mm combined thickness, with a more focal area of endometrial thickening and cystic changes at the fundus measuring 2.4 x 1.4 x 2.0 cm. Ovaries: Right ovary is not visualized. The left ovary measures 2.6 x 1.3 x 1.4 cm, with a calculated ovarian volume of 1.8 cc. No adnexal masses are seen. Other: No pathologic free abdominal or pelvic fluid. IMPRESSION: Thickening of the endometrium measuring up to 14 mm, suspicious for endometrial hyperplasia, polyp, or neoplasm. Consider endometrial biopsy. Approved by: Charles Townsend M.D. on 03/16/2025 at 9:19
[2025-03-16] MEDS: HEPARIN 5,000 UNIT/ML VIAL 5500 UNIT IV (06:45)
[2025-03-16] MEDS: HEPARIN DRIP 25,000 UNIT/500 ML IV.SOLN 24.5 UNIT IV (07:01)
[2025-03-16 07:08] LABS: PTT Partial Thromboplastin Tim 26 SECONDS (25.1-36.5)
[2025-03-16] MEDS: AZITHROMYCIN 500 MG in DEXTROSE 5% IN WATER 250 ML 250 MG IV (08:46)
--- NOTE | 2025-03-16 10:47 | P.HP_ITS ---
History of Present Illness History of Present Illness Date Patient Seen: 03/16/25 Time Patient Seen: 10:47 Chief complaint: pain under left breast/hurts to breathe Narrative: This is a 65-year-old female with a history of right diaphragmatic paralysis who presents with 2 days of progressive bilateral pleuritic chest pain. Yesterday while she was swimming she noticed increasing shortness of breath. The chest discomfort worsened and so she came to the ED where she was found on CTA to have bilateral pulmonary emboli. The Pelvic US shows abnormal 14 mm endometrial thickening. Endometrial biopsy is recommended. She has no history of recent travel, prior DVT/PE, family history of coagulative disorder or known cancer. She is very active, swimming nearly every day. CT chest suggests right heart strain which is ruled out on echocardiogram. [facility] Medical History (Updated 03/16/25 @ 14:41 by Sujit Hein MD) Elevated hemidiaphragm Surgical History (Updated 03/16/25 @ 14:41 by Sujit Hein MD) H/O excision of dermoid cyst H/O: H/O breast augmentation Family History (Updated 03/16/25 @ 14:45 by Sujit Hein MD) Mother Dementia Father Myocardial infarct Sister Breast cancer Social History household members: spouse Smoking Status: Never smoker Meds Home Medications and Allergies Home Medications ?Medication ?Instructions ?Recorded ?Confirmed ?Type mdnleffs-hije-stcj 8 mg-folic 400 1 tab PO DAILY 05/0703/16/25 History mcg-K 50 mcg-lutein 300 mcg tablet (Centrum Silver Women) Allergies Allergy/AdvReac Type Severity Reaction Status Date / Time PCN (PENICILLIN) Allergy Mild Uncoded 03/16/25 03:00 Review of Systems Review of Systems Narrative: Positive for pleuritic chest pain and shortness of breath with exertion. Negative for fevers, chills, sweats, coughing, abdominal pain, nausea, vomiting, bleeding, rashes, joint pain, headaches, allergies, sore throat. Exam Vital Signs (past 8 hours): - 03/16/25 03:00 03/16/25 04:11 03/16/25 04:12 Temperature 98.5 F Pulse Rate 82 69 Respiratory Rate 15 Blood Pressure 122/58 L 131/75 Pulse Oximetry 96 97 Oxygen Delivery Method Room Air 03/16/25 04:12 03/16/25 04:30 03/16/25 04:30 Temperature Pulse Rate 69 67 Respiratory Rate 24 22 Blood Pressure 134/60 Pulse Oximetry 97 96 Oxygen Delivery Method 03/16/25 05:00 03/16/25 05:00 03/16/25 06:47 Temperature Pulse Rate 68 67 Respiratory Rate 28 H 23 Blood Pressure 123/71 Pulse Oximetry 96 97 Oxygen Delivery Method 03/16/25 06:48 03/16/25 06:48 03/16/25 07:00 Temperature Pulse Rate 66 69 Respiratory Rate 21 30 H Blood Pressure 139/65 Pulse Oximetry 96 97 Oxygen Delivery Method 03/16/25 07:01 03/16/25 07:01 03/16/25 07:49 Temperature Pulse Rate 70 86 Respiratory Rate 28 H Blood Pressure 122/57 L Pulse Oximetry 96 97 Oxygen Delivery Method 03/16/25 08:00 03/16/25 08:30 03/16/25 09:01 Temperature Pulse Rate 62 65 71 Respiratory Rate 21 19 Blood Pressure Pulse Oximetry 98 95 92 Oxygen Delivery Method 03/16/25 09:03 03/16/25 09:03 03/16/25 09:30 Temperature Pulse Rate 70 73 Respiratory Rate Blood Pressure 121/56 L Pulse Oximetry 98 97 Oxygen Delivery Method 03/16/25 09:30 Temperature Pulse Rate Respiratory Rate Blood Pressure 131/64 Pulse Oximetry Oxygen Delivery Method Oxygen Delivery Method Room Air Narrative Exam Narrative: Alert and oriented x3. No apparent distress. Pupils are equally round and reactive to light and accommodation. Extraocular muscles are intact. Sclerae are pink and nonicteric. Throat looks normal. No lymph nodes are felt head, neck, supraclavicular area. There is no thyromegaly. JVD is less than 6 cm. No carotid bruits are heard. Heart is regular rate and rhythm without murmur. Lungs are clear to auscultation bilaterally. Abdomen is soft, bowel sounds positive, nontender, no organomegaly. Extremities have no ankle edema. There is no calf tenderness and Homans sign is negative bilaterally. Skin has no rash or jaundice. Neurologic exam is normal without tremor, cranial nerve abnormality, extremity asymmetry or DTR abnormality. Objective Labs 03/16/25 04:15 03/16/25 04:15 Labs: Laboratory Results - last 24 hr 03/16/25 04:15 WBC 8.0 RBC 4.44 Hgb 13.6 Hct 40.7 MCV 91.6 MCH 30.6 MCHC 33.4 RDW 13.1 Plt Count 192 Neut % (Auto) 77.7 H Lymph % (Auto) 13.0 L [place] % (Auto) 7.7 Eos % (Auto) 1.0 L Baso % (Auto) 0.6 Neut # (Auto) 6200 Lymph # (Auto) 1000 L [place] # (Auto) 600 Eos # (Auto) 100 Baso # (Auto) 0 APTT 26 Sodium 137 Potassium 4.1 Chloride 104 Carbon Dioxide 29 BUN 16 Creatinine 0.66 Estimated GFR > 60 BUN/Creatinine Ratio 24.2 H Glucose 127 H Calcium 9.0 Total Bilirubin 0.6 AST 22 ALT 18 Alkaline Phosphatase 73 Total Creatine Kinase 36 Troponin I < 0.012 Total Protein 6.4 Albumin 3.8 Globulin 2.6 Albumin/Globulin Ratio 1.5 Lipase 767 H Assessment & Plan Assessment & Plan narrative: This is a 65-year-old female with a history of right diaphragmatic paralysis who presents with 2 days of progressive bilateral pleuritic chest pain. Yesterday while she was swimming she noticed increasing shortness of breath. The chest discomfort worsened and so she came to the ED where she was found on CTA to have bilateral pulmonary emboli. Bilateral Pulmonary Emboli, present on admission. Active. -IV heparin drip, transition to Eliquis on 03/17 -hydrocodone for pleuritic chest pain. -recommend 3-6 month treatment. Determination of duration of treatment will be by PCP/Hematology as an outpatient. -possible endometrial carcinoma as a related cause? No history of leg swelling to suggest DVT. -check factor 5 Leiden, antithrombin 3, protein C and S Endometrial Thickening -seen on CT scan and confirmed on ultrasound, 14 mm, endometrial biopsy recommended as outpatient. -this was discussed with the patient. Patient will be on IV heparin followed by oral anticoagulation. Backup decision maker is her . Time-Based Coding :: [TOTAL MINUTES] spent with patient and on the chart (including review of chart, obtaining history, exam, reviewing outside data, placing orders, documenting exam and treatment plan, and counseling patient) on [DATE].
--- NOTE | 2025-03-16 12:07 | PC.NURSE ---
Report given to CLARITA Ferguson. Pt being taken to floor in stretcher.
[2025-03-16 13:56] LABS: PTT Partial Thromboplastin Tim 173 SECONDS (25.1-36.5)
--- NOTE | 2025-03-16 14:22 | PC.NURSE ---
Recieved critical lab result for the pt at 1358, PTT is 173. Pt's Heparin infusion was stopped at 1359. VSS. Afebrile. Dr. Hein notified that the Heparin drip was stopped at 1359 for one hour per non cardiac heparin protocol.
[2025-03-16] MEDS: SODIUM CHLORIDE 0.9% FLUSH 10 ML IV ×4 (14:49→21:30)
--- NOTE | 2025-03-16 15:02 | PC.NURSE ---
Pt's heparin restarted at 1459. Heparin drip restarted at 14 units/kg/hr and double verified with second RN, Dorothea Weiss RN.
[2025-03-16] MEDS: ONDANSETRON 4 MG/2 ML INJ IV (19:29)
[2025-03-16 21:17] LABS: Add Manual Diff / Slide Review NO; Hematocrit 36.3 % (36-46); Hemoglobin 12.4 g/dL (12.0-16.0); Lymphocytes Absolute Auto 1100 /uL (1100-4500); Mean Corpuscular HGB Conc 34.1 % (30-36); Mean Corpuscular Hemoglobin 30.8 PG (26-34); Mean Corpuscular Volume 90.3 fL (80-100); Platelet Count 193 X10^3/uL (150-400)
[2025-03-16 21:24] LABS: INR 1.1 (0.9-1.3); Prothrombin Time 12.4 SECONDS (9.4-12.5)
[2025-03-16 21:39] LABS: PTT Partial Thromboplastin Tim 89 SECONDS (25.1-36.5)
[2025-03-17] VITALS: BP 101/48; PULSE 59; RESP 16; O2SAT 93
[2025-03-17 03:33] LABS: Add Manual Diff / Slide Review NO; Hematocrit 35.6 % (36-46); Hemoglobin 12.2 g/dL (12.0-16.0); Lymphocytes Absolute Auto 1700 /uL (1100-4500); Mean Corpuscular HGB Conc 34.3 % (30-36); Mean Corpuscular Hemoglobin 30.9 PG (26-34); Mean Corpuscular Volume 89.9 fL (80-100); Platelet Count 184 X10^3/uL (150-400)
[2025-03-17 03:37] LABS: Blood Urea Nitrogen 19 mg/dL (7-17); Calcium 8.7 mg/dL (8.4-10.2); Carbon Dioxide 27 mmol/L (22-32); Chloride 104 mmol/L (98-107); Estimated Glomerular Filt Rate > 60 mL/min (>60); Glucose 118 mg/dL (70-99); HEMOLYSIS < 15 (0-50); Potassium 4.0 mmol/L (3.4-5.1); Sodium 136 mmol/L (137-145)
[2025-03-17 03:38] LABS: PTT Partial Thromboplastin Tim 91 SECONDS (25.1-36.5)
[2025-03-17 04:09] VITALS: BP 113/46; PULSE 68; RESP 16; O2SAT 92
--- NOTE | 2025-03-17 07:20 | PM.DS.1 ---
History of Present Illness History of Present Illness Date Patient Seen: 03/17/25 Chief complaint: pain under left breast/hurts to breathe Narrative: This is a 65-year-old female with a history of right diaphragmatic paralysis who presents with 2 days of progressive bilateral pleuritic chest pain. Yesterday while she was swimming she noticed increasing shortness of breath. The chest discomfort worsened and so she came to the ED where she was found on CTA to have bilateral pulmonary emboli. The Pelvic US shows abnormal 14 mm endometrial thickening. Endometrial biopsy is recommended. She has no history of recent travel, prior DVT/PE, family history of coagulative disorder or known cancer. She is very active, swimming nearly every day. CT chest suggests right heart strain which is ruled out on echocardiogram. Discharge Providers Provider Date of admission: 03/16/25 09:38 Discharge Date: 03/17/25 Primary care physician: SHIMON Salinas Discharge provider: Sujit Hein MD Summary Hospital Course Hospital Course: This is a 65-year-old female with a history of right diaphragmatic paralysis who presents with 2 days of progressive bilateral pleuritic chest pain. Yesterday while she was swimming she noticed increasing shortness of breath. The chest discomfort worsened and so she came to the ED where she was found on CTA to have bilateral pulmonary emboli. Bilateral Pulmonary Emboli -IV heparin drip, transitioned to Eliquis before discharge on 03/17 -hydrocodone and Tylenol for pleuritic chest pain. -recommend 3-6 month treatment. Determination of duration of treatment will be by PCP/Hematology as an outpatient. -possible endometrial carcinoma as a related cause? No history of leg swelling to suggest DVT. -check factor 5 Leiden, antithrombin 3, protein C and S, results still pending at discharge. Endometrial Thickening -seen on CT scan and confirmed on ultrasound, 14 mm, endometrial biopsy recommended as outpatient. -this was discussed with the patient. Status at Discharge Cognitive/behavioral status at discharge: at baseline, oriented Functional status at discharge: independent ambulation Overall status at discharge: patient is back to baseline Time Spent with Patient Time spent: Less than 30 minutes Exam Vital Signs (past 8 hours): - 03/17/25 00:00 03/17/25 04:09 Pulse Rate 59 L 68 Respiratory Rate 16 16 Blood Pressure 101/48 L 113/46 L Pulse Oximetry 93 92 Oxygen Flow Rate 0 Oxygen Delivery Method Room Air Oxygen Flow Rate 0 Narrative Exam Narrative: Alert and oriented x3. Up and walking in the hallway. No apparent distress. Heart is regular rate and rhythm without murmur Lungs are clear to auscultation bilaterally Extremities have no ankle edema Objective Labs 03/17/25 03:02 03/17/25 03:02 Labs: Laboratory Results - last 24 hr 03/16/25 03/16/25 03/17/25 13:19 21:00 03:02 WBC 7.4 5.5 RBC 4.02 3.96 L Hgb 12.4 12.2 Hct 36.3 35.6 L MCV 90.3 89.9 MCH 30.8 30.9 MCHC 34.1 34.3 RDW 13.4 13.3 Plt Count 193 184 Neut % (Auto) 77.6 H 56.8 D Lymph % (Auto) 15.0 L 31.5 [place] % (Auto) 6.0 8.8 Eos % (Auto) 1.0 L 2.3 Baso % (Auto) 0.4 0.6 Neut # (Auto) 5800 3100 Lymph # (Auto) 1100 1700 [place] # (Auto) 400 500 Eos # (Auto) 100 100 Baso # (Auto) 0 0 PT 12.4 INR 1.1 APTT 173 H* D 89 H* D 91 H* Sodium 136 L Potassium 4.0 Chloride 104 Carbon Dioxide 27 BUN 19 H Creatinine 0.67 Estimated GFR > 60 BUN/Creatinine Ratio 28.4 H Glucose 118 H Calcium 8.7 PFSH Medical History (Updated 03/16/25 @ 14:41 by Sujit Hein MD) Elevated hemidiaphragm Surgical History (Updated 03/16/25 @ 14:41 by Sujit Hein MD) H/O excision of dermoid cyst H/O: H/O breast augmentation Family History (Updated 03/16/25 @ 14:45 by Sujit Hein MD) Mother Dementia Father Myocardial infarct Sister Breast cancer Social History household members: spouse Smoking Status: Never smoker Discharge Plan Discharge Plan Patient Disposition: Home Provider Discharge Comment: Follow up with Dr. Eulalia Colon in 1-2 weeks. Discharge orders & Medications Prescriptions: New Eliquis 5 mg Tablet 10 mg PO BID Qty: 60 0RF Rx Instructions: Take 2 tabs BID for 7 days and then 1 tab BID after that. hydrocodone-acetaminophen 5-325 mg Tablet 1 tab PO Q4HR PRN (Reason: Pain, Moderate (4-6)) Qty: 10 0RF Continued Centrum Silver Women 8 mg iron-400 mcg-50 mcg tablet 1 tab PO DAILY Follow up/Referrals: Eulalia Colon ARNP [Primary Care Provider, Family Practice] Visit Report/Discharge Packet Instructions: Pulmonary Embolism, DI for Pulmonary Embolism, DI for Prescription Opioid Use Stand Alone Forms: Patient Portal/API, Stroke Signs & Symptoms Discharge Data Primary Care Provider: Eulalia Colon Quality VTE Deep Vein Thrombosis/Pulmonary Embolism Present on Admission: Yes
[2025-03-17] MEDS: HEPARIN DRIP 25,000 UNIT/500 ML IV.SOLN 24.494 UNIT IV (07:31)
[2025-03-17 08:00] VITALS: BP 105/56; PULSE 67; RESP 15; TEMP 36.6; O2SAT 93
[2025-03-17] MEDS: SODIUM CHLORIDE 0.9% FLUSH 10 ML IV (09:15)
[2025-03-17 09:52] LABS: PTT Partial Thromboplastin Tim 89 SECONDS (25.1-36.5)
[2025-03-17] MEDS: APIXABAN 5 MG TABLET 10 MG PO (10:59)
[2025-03-17 11:49] VITALS: BP 110/58; PULSE 80; RESP 16; TEMP 36.4; O2SAT 95
--- NOTE | 2025-03-17 12:28 | CM.DANOTE ---
B DCP Assessment note Pt is a 65yo F that was admitted for chest pain/pain when breathing. ENGINEERING EXECUTIVE reviewed EMR. per chart, pt lives indep with spouse in [place]. Works, swims daily, and leads an active lifestyle. drives. per provider, plan is to dc home today on Eliquis. no hx admits. was on a hep drip/found to have a PE. per chart review/provider report no obvious CM needs at this time. P: anticipate home today with spouse support and OP f/u as needed. will continue to follow in case any DCP needs/barriers to safe dc home should arise. MANI Taylor Discharge Planning/Care Management CM Discharge Assessment Start: 03/16/25 10:17 Freq: Status: Active Protocol: Document 03/17/25 12:27 SL (Rec: 03/17/25 12:28 [id number]) Discharge Planning Assessment Assigned Discharge MANI Garcia Aviation Maintenance Instructor [facility]/Assigned Horace, Designee Name Contact Information [phone] Advance Directives? No History Provided By Patient Prior Living House Arrangements Household Members spouse Type of Drives own vehicle transporation used prior to admit Independent with ADL Yes 's Is patient alert and Yes oriented? Discharge Plan Home Review Status In Process Please Provide Date 03/17/25 Initial DC Assessment Was Performed Next Review Type Continued Stay Review
== END 2025-03-17 13:30 | disposition home or self-care (01) | DRG 176 ==
LOC: ED 09:38 → AC 09:40
PROVIDERS: Emergency Medicine; Internal Medicine; Admitting Provider Family Medicine; Emergency Provider Emergency Medicine; Family Provider Internal Medicine; PCP Registered Nurse; Referring Provider Emergency Medicine; Visit Provider Family Medicine
DX: I26.99 Other pulmonary embolism without acute cor pulmonale (principal); R93.89 Abnormal findings on diagnostic imaging of other specified body structures; J98.6 Disorders of diaphragm
CPT/HCPCS: 36415; 71045; 71275; 74177; 76830; 76856; 80048; 80053; 81241; 82550; 83690; 84484; 85025; 85300; 85301; 85303; 85306; 85610; 85730; 87040; 93005; 93306; 96365; 96366; 96367; 96368; 99284; J0696; J1171; J1644; J2405; Q9967

== ENCOUNTER 2025-04-02 12:40 | Day surgery (SDC) | payer OTHER, SELFPAY ==
[2025-03-16 12:35] VITALS: BMI 26.5
[2025-03-27 14:19] VITALS: BMI 26.9
[2025-04-02] VITALS (11 sets, daily range): BP systolic 111–157; BP diastolic 51–84; PULSE 65–75; RESP 14–18; TEMP 36.1–36.8; O2SAT 93–99; BMI 26.9
--- NOTE | 2025-04-02 | PATH_ITS ---
[facility] Accession Number: [id number] No. of containers..02 Tissue . 01 Material submitted: . PART A: endometrium - ENDOMETRIAL MASS PART B: endometrium - ENDOMETRIAL CURETTING . 01 Diagnosis: A. ENDOMETRIAL MASS: Multiple fragments of endometrial polyp with features of cystic atrophy; negative for significant atypia. Myometrium with no significant abnormality. . B. ENDOMETRIAL CURETTING: Small fragments of endometrial tissue and strips of endometrial glandular epithelium; negative for significant atypia. Ectocervix with no significant atypia. [place] 04/10/2025 1519 Local . 01 Electronically signed: . Sully Centeno MD, Pathologist NPI- [id number] . 01 Gross description: . Received are two formalin-filled containers both labeled with the patient's name. . A. In a container labeled endometrial mass, are multiple fragments of martinez-gibson tissue which measure 4.0 x 3.0 x 0.4 cm. Filtered, wrapped, and entirely submitted in cassettes A1-A2. B. In a container labeled endometrial curettings, are multiple fragments of mucoid material and blood which measure 1.0 x 1.0 x 0.1 cm in aggregate. Filtered, wrapped, and entirely submitted in cassette B1. ([id number]) /[place] 04/06/2025 0210 Local . 01 Pathologist provided ICD-10: N94.89, R93.89 . 01 CPT . 738599, [id number] Specimen Comment: A courtesy copy of this report has been sent to [facility] Performed at: [address] [facility], [place], [place] [id number] MD Tyrell Guadalupe MD Phone: [phone]
[2025-04-02] MEDS: LACTATED RINGERS 1,000 ML 42 ML IV (13:17)
[2025-04-02] MEDS: ACETAMINOPHEN 325 MG TABLET 975 MG PO (13:19)
--- NOTE | 2025-04-02 13:41 | PM.PREOP ---
Pre-operative Note COVID-19 COVID-19 status: Not tested Interval Note History & Physical reviewed/Exam performed by Physician: Yes Changes to H&P: Yes H&P completed within 30 days and has changed as indicated here:: cardio- RRR lungs- CTAB ASA Class (for procedural sedation): III
--- NOTE | 2025-04-02 13:57 | SUR.OPER ---
Lithotomy on padded OR bed, head on pillow, arms secured on padded arm boards at <90 degrees abduction. Legs secured in padded yellow fins stirrups.
--- NOTE | 2025-04-02 14:39 | P.OP_ITS ---
Operative Date/Time/Diagnoses Date of procedure: 04/02/25 Time of procedure: 14:00 Pre-op diagnosis: Endometrial thickening Post-op diagnosis: other (Endometrial mass removed with myosure) Procedure & Clinicians Procedure: Hysteroscopic removal of endometrial mass with the myosure device, dilation and curettage Same procedure(s) as scheduled: No (Unexpected finding of Endometrial mass required myosure device for removal ) Indications: Endometrial mass recent bilateral pulmonary emboli-- no inciting even or genetic reason, thickened EMS noted on CT scan and US, failed EMB Surgeon: Nikki Edwards Assisted?: No Anesthesia Type: General Operative Notes Findings: nonenlarged uterus, atrophic endometrium, patent left ostia, right ostia visualized- nonpatent, 1-2cm endometrial mass visualized on the posterior uterine wall, we circumscribed mass -- differential including degenerating submucosal fibroid vs carcinoma Closure Type: not applicable Specimen(s): other (endoemtrial mass and endometrial curettings) Applied: none Estimated Blood Loss (mL): 10 Blood products transfused: none Procedure in detail: The patient was taken to the operating room where she was properly prepped and draped in sterile manner under general anesthesia. After bimanual examination, the cervix was exposed with a weighted vaginal speculum and the anterior lip of the cervix grasped with a tenaculum. The endocervical canal was then prog ressively dilated with Hegar dilators to a #10 Hegar. The hysteroscope was then introduced into the uterine cavity using sterile saline solution as a distending media and with attached video camera. The endometrial cavity was distended with fluids and the cavity visualized. The above findings were noted. Several pictures were taken of the endometrial cavity and the hysteroscope removed from the cavity. Due to a finding of a large endometrial mass the hysteroscope was switched out for the Myosure scope and the XL myosure cutting device used to excise the mass for pathology evaluation. The tissue was soft and easily removed with some increased bleeding but at the completion of removal the bleeding was minimal. Cutting time 25 seconds, deficit -10cc. The hysteroscope was then removed and a sharp curette was used for uterine curettage. Moderate amount of curettings removed. Endometrial curettings and the endometrial mass were sent separately to pathology. The tenaculum was removed noting excellent hemostasis at puncture sites. The instrument was removed from the vaginal vault. The patient was sent to recovery area in satisfactory postoperative condition. Complications: none Post-operative Condition: stable Disposition: same day surgery Plan for aftercare: discharge home, continue Eliquis for treatment of PEs, pelvic rest x 2 weeks, follow up in clinic in 2wks for postop check and review pathology
[2025-04-02] MEDS: fentaNYL 100 MCG/2 ML INJ IV ×4 (15:00→15:22)
--- NOTE | 2025-04-02 16:07 | SUR.PHASEII ---
Pt ready for d/c but requested additional oxycodone prior to leaving; chart accidentally already closed per Abdulaziz RN, d/w Nanci Hendrix [employer] who gave order ok to give this to pt before she leaves; scanned into chart and pt took pain med for pain level 4/10 prior to d/c
== END 2025-04-02 16:01 | disposition home or self-care (01) ==
PROVIDERS: Family Provider Internal Medicine; PCP Registered Nurse; Referring Provider Registered Nurse; Visit Provider Obstetrics & Gynecology
PROC: 0UDB8ZZ Extraction of Endometrium, Via Natural or Artificial Opening Endoscopic (ICD-10-PCS; CPT 58558; principal; 2025-04-02 14:30)
DX: N94.89 Other specified conditions associated with female genital organs and menstrual cycle (principal); N85.8 Other specified noninflammatory disorders of uterus; N84.0 Polyp of corpus uteri
CPT/HCPCS: 58563; J1100; J1885; J2704; J3010

== ENCOUNTER → 2025-05-19 12:50 | Outpatient (CLI) | payer OTHER, SELFPAY ==
[2025-03-16 12:35] VITALS: BMI 26.5
--- NOTE | 2025-05-19 12:50 | DI.MG.S_ITS ---
MM screening mammo implant BI: 05/19/2025. BI-RADS: 2 CLINICAL: 65-year old female for bilateral screening mammogram. Tyrer-Cuzick lifetime risk of 8.6%. Current reported family history of breast cancer: sister. The patient has bilateral implants. PRIOR EXAMS 05/15/2024, 06/04/2023, 05/14/2023. MAMMOGRAPHY TECHNIQUE: 2D and 3D (tomosynthesis) digital mammographic views obtained, with additional images as needed for full coverage. Current study was also evaluated with a Computer Aided Detection (CAD) system. DENSITY B. There are scattered areas of fibroglandular density. IMPLANTS Breast implants present. MAMMOGRAPHY FINDINGS Bilateral: There are no suspicious masses, calcifications, or other findings in the breast. No significant change from comparison. IMPRESSION: * No evidence of malignancy with benign findings. RECOMMENDATIONS Bilateral * Annual screening mammography. OVERALL ASSESSMENT CATEGORY BI-RADS-2: Benign. The [employer] recommends annual screening mammography beginning at age 40 for women with average risk of breast cancer. ELECTRONICALLY SIGNED: Mary Lema M.D. on 05/21/2025 at 11:45:46 AM PT Interpreting Station ID: [id number]
== END ==
LOC: MAMMO 12:50
PROVIDERS: PCP Registered Nurse; Referring Provider Registered Nurse; Visit Provider Registered Nurse
DX: Z12.31 Encounter for screening mammogram for malignant neoplasm of breast (principal); Z80.3 Family history of malignant neoplasm of breast; Z98.82 Breast implant status
CPT/HCPCS: 77063; 77067